=== PATIENT | male | born 1955 | race Caucasian/White ===

== ENCOUNTER 2023-02-07 09:50 | Inpatient (IN) ==
[2023-02-07] MEDS ORDERED: NITROGLYCERIN 2% OINTMENT 30GM TUBE EXT STA (10:20)
[2023-02-07] MEDS: SODIUM CHLORIDE 0.9% 1000ML 1,000 ML IV SCH ×2 (10:46→19:52)
[2023-02-07 10:47] LABS: Basophils # (auto) 0.05 K/uL (0-0.2); Basophils % (auto) 0.7 %; Eosinophils # (auto) 0.25 K/uL (0-0.50); Eosinophils % (auto) 3.6 %; Hematocrit (blood only) 43.8 % (42.0-52.0); Hemoglobin 14.8 g/dl (14.0-18.0); Immature Granulocytes # (auto) 0.03 K/uL (0.01-0.20); Immature Granulocytes % (auto) 0.4 %; Lymphocytes # (auto) 1.64 K/uL (1.2-3.4); Lymphocytes % (auto) 23.4 %; Mean Corpuscular Hemoglobin 29.2 pg (25.0-34.0); Mean Corpuscular Hgb Conc 33.8 g/dL (32.0-36.0); Mean Corpuscular Volume 86.4 fL (80.0-100.0); Mean Platelet Volume 10.6 fL (9.4-12.4); Monocytes # (auto) 0.73 K/uL (0.11-0.59); Monocytes % (auto) 10.4 %; Neutrophils # (auto) 4.31 K/uL (1.40-6.50); Neutrophils % (auto) 61.5 %; Platelet Count 183 K/uL (130-400); RDW Coefficient of Variation 14.1 % (11.5-14.5); RDW Standard Deviation 44.7 fL (36.4-46.3); Red Blood Count 5.07 M/uL (4.70-6.10); White Blood Count 7.01 K/ul (4.8-10.8)
--- NOTE | 2023-02-07 10:52 | XRay Report ---
SINGLE VIEW CHEST CLINICAL HISTORY: Atypical chest pain. FINDINGS: An AP, portable, upright chest radiograph is obtained. No prior studies are available for c omparison at the time of dictation. The examination is degraded by portable technique and apical lord otic positioning. The cardiomediastinal silhouette is top normal for projection. Mild atelectasis is seen at the lung bases. The lungs and pleural spaces are otherwise clear. No pneumothorax is seen. Th e bony thorax is grossly intact. Cholecystectomy clips are noted in the right upper quadrant. IMPRESSION: No active disease in the chest. ACT 112: Negative or not required by law. Electronically signed by: El Rodas M.D. 02/07/2023 10:50 AM
[2023-02-07 11:00] LABS: INR 0.9 (0.9-1.1); Prothrombin Time 10.3 Seconds (9.0-12.0)
[2023-02-07 11:29] LABS: Albumin Level 4.2 gm/dl (3.4-5.0); Bilirubin,Total 0.7 mg/dl (0.2-1.0); Calcium 9.3 mg/dl (8.6-10.3); Potassium 4.3 mmol/L (3.5-5.1); Troponin I High Sensitivity 5.3 pg/ml (0-20)
[2023-02-07 11:35] LABS: Albumin Globulin Ratio 1.7 (0.9-2); BUN Creatinine Ratio 16.5 (10-20); Creatinine Clr Calc Pharmacy 67.2 ml/min; Est GFR (African American) 91.9 ml/min; Est GFR (Non-African American) 79.3 ml/min; Globulin 2.5 gm/dl (2.5-4.0); Total Protein 6.7 gm/dl (6.0-8.3)
--- NOTE | 2023-02-07 12:14 | Emergency Department Note ---
Impression & Plan Chest pain ED Provider Note ED Provider Note NAME: KITTY NAPOLES AGE:67 SEX: Male : 1955 ARRIVES VIA: Private vehicle INFORMANT: Patient ED PROVIDER(s): Dalia Paige DO CHIEF COMPLAINT: Chest pain HPI: This is a 67-year-old male presents Emergency Department with concern for chest pain. Patient states he was working outside in the yard today when he began developing chest pain that radiated into the left upper extremity and into the neck. Patient states he did feel slightly lightheaded, more short of br eath. He denies nausea, vomiting, diaphoresis, or near syncope. No recent change in medications. Patient does follow with cardiology as he does have known coronary artery disease and states he has 4 stents. He states symptoms are similar to his last heart attack in the fall 2021. He denies any recent fevers, chills, or illness. No recent change in medications. No trauma or injury. Patient states when pain began this morning, he did take a total of 3 nitro at home with improvement of his symptoms down to a 2/10 by arrival here. Denies any increased GERD recently. PAST MEDICAL HISTORY:See Below PAST SURGICAL HISTORY:See Below FAMILY HISTORY:See Below SOCIAL HISTORY:See Below HOME MEDICATIONS:See Below ALLERGIES:See Below VITALS:See Below PHYSICAL EXAMINATION: GENERAL: alert, well appearing, well nourished, no distress, non-toxic EYE EXAM: normal conjunctiva, PERRL and EOM's grossly intact OROPHARYNX: no exudate, no erythema, lips, buccal mucosa, and tongue normal and mucous membranes are moist NECK: supple, no nuchal rigidity, no adenopathy, non-tender LUNGS: Clear to auscultation. Normal chest wall mechanics, no w/r/r HEART: no murmurs, S1 normal and S2 normal, no reproducible chest wall tenderness ABDOMEN: abdomen soft, non-tender, normo-active bowel sounds, no masses, no rebound or guarding. BACK: Back is symmetrical on inspection and there is no deformity, no midline tenderness, no CVA tenderness. SKIN: no rashes, petechiae, orbruising UPPER EXTREMITIES: upper extremities are grossly normal. FROM, nml pulses b/l. LOWER EXTREMITIES: No pitting edema. FROM, nml pulses b/l. NEURO EXAM: Normal sensorium, cranial nerves II-XII grossly intact, normal speech, no facial droop,nogross weakness of arms, no gross weakness of legs. Gross sensation intact. No ataxia. Vital Signs: reviewed and remarkable Differential Diagnosis: ACS, PE, pna, dissection, pericarditis/myocarditis, pleural effusion, pericardial effusion, GERD, perforation, GI bleed, as well as others were MEDICAL DECISION MAKING: This is a 67-year-old male presents emergency department due to concern for chest pain which began during exertion this morning. Patient with significant cardiac history and prior PCI. He denies any recent change in reflux symptoms and states he has been compliant with his pantoprazole. Patient was afebrile and vital signs stable, no increased work of breathing or hypoxia noted. Labs drawn and sent, IV established, EKG and chest ray performed at bedside and interpreted by me and patient monitored on telemetry. No acute EKG changes noted and first troponin negative. Given patient did have improvement at home with nitro, nitroglycerin paste was applied with resolution of remaining discomfort. Case discussed with hospitalist for additional evaluation and management given risk factors and known CAD. At this time I do not feel patient required additional CT imaging as I am less suspicious of dissection or worsening thoracic aneurysm. I do not suspect PE. Consultation(s): [] ER Treatment Provided: See below Diagnostics Interpreted By Me: -ECG: Normal sinus at 63, normal axis, normal intervals, inverted T wave in lead III only, no other acute ST/T wave changes -Cardiac Monitoring: An order was placed for continuous cardiac monitoring. The monitor shows a rate of 68 with normal sinus rhythm. -Laboratory studies: As stated above and show below. -Imaging studies: X-ray Chest: A single view study of the chest was reviewed and was negative for cardiomegaly, focal infiltrate, effusion, pulmonary edema, or wide mediastinum. Triage Nursing Note Reviewed Prior/Outside Records Reviewed Past Med/Surg History Surgical History S/P cholecystectomy S/P laparoscopic procedure prostate S/P ureteral stent placement Family History Grandmother (Maternal) Ovarian cancer Brother Colorectal cancer Father Myocardial infarction Stroke Other Hypertension Denies family history of Prostate cancer Breast cancer Social History (Reviewed 02/08/23 @ 11:49 by JOSEPH Page Smoking Status: Never smoker Second Hand Exposure: No; Do You Dip or Chew Tobacco: No; Hx Alcohol Use: Yes Alcohol type: beer and wine Alcohol Intake Frequency: Monthly or Less Hx Substance Use: No Preferred Language: Jordanian Hot Header Operator Required: No Beliefs That Will Affect Care: None marital status: Current Living Situation: Spouse current occupational status: employed Feels Safe at Home: Yes Physical Activity Frequency: Daily Assistive Devices: Denture - Upper, Denture - Lower, Glasses and Walker Allergies Allergies Allergy/AdvReac Type Severity Reaction Status Date / Time No Known Allergies Allergy Verified 01/24/23 14:29 Home Meds Home Medications Medication Instructions Recorded Confirmed aspirin 81 mg tablet,delayed 81 mg PO DAILY 11/24/21 02/07/23 release (Adult Aspirin Regimen) clopidogrel 75 mg tablet (Plavix) 75 mg PO DAILY 11/24/21 02/07/23 ezetimibe 10 mg tablet (Zetia) 10 mg PO DAILY 11/24/21 02/07/23 omega 8-nds-wxx-fish oil 1,000 mg 1 cap PO BID 11/24/21 02/07/23 (120 mg-180 mg) capsule (Fish Oil) ranolazine 500 mg tablet,extended 500 mg PO BID 11/24/21 02/07/23 release,12 hr (Ranexa) pantoprazole 40 mg tablet,delayed 40 mg PO DAILY 01/24/23 02/07/23 release (Protonix) rosuvastatin 40 mg tablet 40 mg PO DAILY 02/07/23 02/07/23 Results & Data (ED) Vital Signs Vital Signs - 24 hr 02/07/23 12:00 02/07/23 12:30 02/07/23 13:15 Pulse Rate 66 62 54 L Pulse Rate from SpO2 Sensor 65 63 Respiratory Rate 21 20 22 Blood Pressure 109/66 123/78 128/75 Blood Pressure Mean 80 93 92 Pulse Oximetry 95 96 96 Oxygen Delivery Method Room Air Room Air Room Air 02/07/23 13:30 Pulse Rate 60 Pulse Rate from SpO2 Sensor 59 L Respiratory Rate 17 Blood Pressure 106/66 Blood Pressure Mean 79 Pulse Oximetry 95 Oxygen Delivery Method Room Air Laboratory Data 02/07/23 10:06 02/07/23 10:06 Lab Results 02/07/23 02/07/23 02/07/23 Range/Units 10:06 10:06 10:06 WBC 7.01 (4.8-10.8) K/ul RBC 5.07 (4.70-6.10) M/uL Hgb 14.8 (14.0-18.0) g/dl Hct 43.8 (42.0-52.0) % MCV 86.4 (80.0-100.0) fL MCH 29.2 (25.0-34.0) pg MCHC 33.8 (32.0-36.0) g/dL RDW Std Deviation 44.7 (36.4-46.3) fL RDW Coeff of Robert 14.1 (11.5-14.5) % Plt Count 183 (130-400) K/uL MPV 10.6 (9.4-12.4) fL Immature Gran % (Auto) 0.4 % Neut % (Auto) 61.5 % Lymph % (Auto) 23.4 % Leon % (Auto) 10.4 % Eos % (Auto) 3.6 % Baso % (Auto) 0.7 % Neut # (Auto) 4.31 (1.40-6.50) K/uL Lymph # (Auto) 1.64 (1.2-3.4) K/uL Leon # (Auto) 0.73 H (0.11-0.59) K/uL Eos # (Auto) 0.25 (0-0.50) K/uL Baso # (Auto) 0.05 (0-0.2) K/uL Immature Gran # (Auto) 0.03 (0.01-0.20) K/uL PT 10.3 (9.0-12.0) Seconds INR 0.9 (0.9-1.1) Sodium 140 (136-145) mmol/L Potassium 4.3 (3.5-5.1) mmol/L Chloride 107 (98-107) mmol/L Carbon Dioxide 27 (21-32) mmol/L Anion Gap 6 (3-11) BUN 16 (6-23) mg/dl Creatinine 0.97 (0.6-1.4) mg/dl Est Cr Clr Drug Dosing 67.2 ml/min Est GFR ( Amer) 91.9 ml/min Est GFR (Non-Af Amer) 79.3 ml/min BUN/Creatinine Ratio 16.5 (10-20) Glucose 113 H (70-99(Fasting)) mg/dl Calcium 9.3 (8.6-10.3) mg/dl Magnesium 2.0 (1.7-2.4) mg/dl Total Bilirubin 0.7 (0.2-1.0) mg/dl AST 21 (13-39) U/L ALT 25 (7-52) U/L Alkaline Phosphatase 55 (34-104) U/L Troponin I High Sens 5.3 (0-20) pg/ml Total Protein 6.7 (6.0-8.3) gm/dl Albumin 4.2 (3.4-5.0) gm/dl Globulin 2.5 (2.5-4.0) gm/dl Albumin/Globulin Ratio 1.7 (0.9-2) Lipase 22 (11-82) U/L Administered Medications Aspirin (Aspirin 81 Mg Ectab) 81 mg PO DAILY DELILAH Stop: 03/10/23 08:59 Last Admin: 02/08/23 07:36 Dose: 81 mg Documented By: AAB Clopidogrel Bisulfate (Clopidogrel Bisulfate 75 Mg Tab) 75 mg PO DAILY DELILAH Stop: 03/10/23 08:59 Last Admin: 02/08/23 07:36 Dose: 75 mg Documented By: AAB Ezetimibe (Ezetimibe 10 Mg Tablet) 10 mg PO DAILY DELILAH Stop: 03/10/23 08:59 Last Admin: 02/08/23 07:36 Dose: 10 mg Documented By: AAB Fish Oil (Merrill-3 (Purified Fish Oil) 1 Gm Cap) 1 gm PO BID DELILAH Stop: 03/09/23 20:59 Last Admin: 02/08/23 07:35 Dose: 1 gm Documented By: Admin: 02/07/23 20:20 Dose: 1 gm Documented By: QG Sodium Chloride (Nss 1000ml) 1,000 mls @ 125 mls/hr IV .Q8H DELILAH Stop: 03/09/23 10:29 Last Admin: 02/08/23 03:51 Dose: 125 mls/hr Documented By: Infusion: 02/08/23 03:51 Dose: 125 mls/hr Documented By: Admin: 02/07/23 19:52 Dose: 125 mls/hr Documented By: Infusion: 02/07/23 18:46 Dose: 125 mls/hr Documented By: Admin: 02/07/23 10:46 Dose: 125 mls/hr Documented By: FABRIZIO Pantoprazole Sodium (Pantoprazole 40 Mg Tab) 40 mg PO DAILY DELILAH Stop: 03/10/23 08:59 Last Admin: 02/08/23 07:36 Dose: 40 mg Documented By: MILKA Ranolazine (Ranolazine 500 Mg Er Tab) 500 mg PO BID DELILAH Stop: 03/09/23 20:59 Last Admin: 02/08/23 07:35 Dose: 500 mg Documented By: Admin: 02/07/23 20:20 Dose: 500 mg Documented By: PadmaG Rosuvastatin Calcium (Rosuvastatin Calcium 20 Mg Tab) 40 mg PO DAILY DELILAH Stop: 03/10/23 08:59 Last Admin: 02/08/23 07:35 Dose: 40 mg Documented By: MILKA Discontinued Medications Al Hydrox/Mg Hydrox/Simethicone (Aluminum/Magnesium/Simeth (Maalox Max) 30 Ml Udc) 30 ml PO ONE ONE Stop: 02/07/23 13:46 Last Admin: 02/07/23 13:48 Dose: 30 ml Documented By: Nitroglycerin (Nitroglycerin 2% Ointment 30gm Tube) 1 inch EXT NOW STA Stop: 02/07/23 10:21 Last Admin: 02/07/23 10:47 Dose: 1 inch Documented By: FABRIZIO Imaging Data Radiologist's Impression: Chest X-Ray 02/07/23 10:20 SINGLE VIEW CHEST CLINICAL HISTORY: Atypical chest pain. FINDINGS: An AP, portable, upright chest radiograph is obtained. No prior studies are available for comparison at the time of dictation. The examination is degraded by portable technique and apical lordotic positioning. The cardiomediastinal silhouette is top normal for projection. Mild atelectasis is seen at the lung bases. The lungs and pleural spaces are otherwise clear. No pneumothorax is seen. The bony thorax is grossly intact. Cholecystectomy clips are noted in the right upper quadrant. IMPRESSION: No active disease in the chest. ACT 112: Negative or not required by law. Electronically signed by: El Rodas M.D. 02/07/2023 10:50 AM Discharge Plan Visit Data Chief Complaint: Chest Pain Stated Complaint: SHARP CHEST PAIN, TINGLING IN L ARM, HEADACHES ED Provider: Dalia Paige Discharge Problem: Chest pain Patient Disposition: Admitted As Inpatient Discharge Instructions Interventions: ED Discharge Assessment Last Done: 02/07/23 14:30
--- NOTE | 2023-02-07 13:05 | History & Physical Report ---
Date of Service February 07, 2023 Assessment & Plan (1) Chest pain: Plan: Chest pain. Hx CAD w/ PCI x2. acute on chronic, unstable, increased risk. Initial troponin negative. 2-hour pending, 6-hour x 3 pending - Echo 2015 EF 55%. Updated echo pending CXR: No acute findings, no fluid overload EKG: Normal sinus rhythm, no territorial ST segment changes/T wave inversions. QTc 411 No leukocytosis, hemoglobin 14.8 Creatinine with normal baseline, admitting creatinine 0.97 Last lipid panel cholesterol 133/LDL 57/HDL/58 Lipase 22 Given strong cardiac history, similarity of symptoms to prior [place] patient is recommended for admission for cardiac eval Aspirin/Plavix DAPT continued Simvastatin/Zetia continued Cardiology consulted. Pt reports he does not wish to have/trust a nuclear stress test as with his past 2x PCI episodes and stents his nuclear stress test was normal prior to cath which did require stents. Records from [facility] pending. Hx Hiatal Hernia, GERD - Pt does not think current sx feels similar to his prior gerd, but note his pain in low chest and bilaterally - No epigastric tenderness - Will trial GI cocktail x1 - Continue PPI THEE - CPAP qHS DVT PPx: Lovenox Diet: HH, NPO 0000 CODE: Full Code Dispo: Med/TEle for CP r/o (2) LVH (left ventricular hypertrophy): (3) Hypercholesterolemia: (4) Hypertension: (5) CAD (coronary artery disease): History of Present Illness Primary Care Provider: Laverne Chirinos is a 67-year-old male with a past medical history of hypertension, CAD with history of RCA stenting , mild LVH, hyperlipidemia who presents with exertional chest pain similar to his prior pain leading to stents. He reports that he was doing yard work and he had sudden onset chest pain with radiation to the left upper extremity and neck with lightheadedness, shortness of breath. He has a history of PCI with 4 prior stents, and his pain this morning felt similar to his last heart attack. He did not have any sweating/diaphoresis with this episode. No syncope. [place] lightheaded, but did not feel like he was going to pass out. Pain took 3 nitro with improvement in pain to 2/10 then 0/10. At time of hospitalist assessment his pain has completely resolved. Reports total his pain only lasted 2-5 minutes. NO chest pain [facility] 2000. Reports he has been chest pain free since his last stent up until today. Takes ranexa BID. Last stent was with Dr. Malone in [place]. Follows with Dr. Arteaga currently. +Nausea without vomiting during episode. Slight headache after episode improved at time of admission. - Pt reports he has had mutiple stress tests previously which have been normal, last was a nuclear stress test. Stress tests were normal even prior to both episodes of stents. He has a history of sleep apnea and acid reflux, generally does not lay flat due to these. Is compliant with CPAP for sleep apnea. No leg swelling/edema. No weight gain No longer on beta jerry. Was previously on metroprolol which was stopped by a physician in [facility], although was unclear why. [facility] was the one who placed first two stents, [place] placed the second two. No chest pain doing extensive yard work yesterday, this morning came on quickly, Medical History: Reviewed Medications: Reviewed Surgical History: Reviewed Family history: Reviewed Allergies: Reviewed Social History: No tobacco, rare glass of wine/beer. No rec drug. Code Status: Full Code Allergies Allergy/AdvReac Type Severity Reaction Status Date / Time No Known Allergies Allergy Verified 01/24/23 14:29 Home Medications Medication Instructions Recorded Confirmed Type aspirin 81 mg tablet,delayed 81 mg PO DAILY 11/24/21 02/07/23 History release (Adult Aspirin Regimen) clopidogrel 75 mg tablet (Plavix) 75 mg PO DAILY 11/24/21 02/07/23 History ezetimibe 10 mg tablet (Zetia) 10 mg PO DAILY 11/24/21 02/07/23 History omega 8-hsp-nur-fish oil 1,000 mg 1 cap PO BID 11/24/21 02/07/23 History (120 mg-180 mg) capsule (Fish Oil) ranolazine 500 mg tablet,extended 500 mg PO BID 11/24/21 02/07/23 History release,12 hr (Ranexa) pantoprazole 40 mg tablet,delayed 40 mg PO DAILY 01/24/23 02/07/23 History release (Protonix) rosuvastatin 40 mg tablet 40 mg PO DAILY 02/07/23 02/07/23 History Past Med/Surg History Surgical History (Updated 11/24/21 @ 14:39 by Raulito Arteaga MD) S/P cholecystectomy S/P laparoscopic procedure prostate S/P ureteral stent placement Family History (Updated 11/24/21 @ 13:50 by JS Bush) Grandmother (Maternal) Ovarian cancer Brother Colorectal cancer Father Myocardial infarction Stroke Other Hypertension Denies family history of Prostate cancer Breast cancer Social History (Updated 11/24/21 @ 13:52 by JS Bush) Smoking Status: Never smoker Second Hand Exposure: No; Do You Dip or Chew Tobacco: No; Hx Alcohol Use: Yes Alcohol Intake Frequency: Monthly or Less Hx Substance Use: No Preferred Language: Sinhala marital status: Current Living Situation: Spouse current occupational status: employed Feels Safe at Home: Yes Physical Activity Frequency: Daily Review of Systems Review of Systems: All systems reviewed & are unremarkable except as noted in HPI & below Physical Exam Physical Exam: General: A&Ox3. NAD. Cooperative. HEENT: Atraumatic, normocephalic. Vision/hearing grossly intact. EoM intact. Pulm: CTAB A&P. -wheezes, -rales, -rhonchi. Symmetrical chest rise. No increased work of breathing. No respiratory distress. Cardiac: RRR, -mrg. Radial pulses intact and symmetrical. Abdominal: Nontender, nondistended, soft. BS present. Ext: warm, dry. No edema. Moving upper and lower extremities equally with intact strength. Sensation to soft touch intact in hands and feet bilaterally. Results & Data Results & Data Vital Signs (Past 12 Hours) Vital Signs Temp Pulse Resp BP Pulse Ox O2 Del Method 02/07/23 12:00 66 21 109/66 95 Room Air 02/07/23 11:30 67 20 114/69 95 Room Air 02/07/23 11:00 62 16 123/71 94 Room Air 02/07/23 10:30 60 13 96 02/07/23 10:30 118/71 02/07/23 10:25 148/89 H 02/07/23 10:25 60 19 95 02/07/23 10:09 98 02/07/23 10:09 147/97 H 02/07/23 10:05 139/74 02/07/23 10:05 59 L 18 97 02/07/23 10:04 61 12 02/07/23 10:06 63 02/07/23 09:52 36.6 C 66 18 166/83 H 98 Room Air PG Care Time/CCT Total # of Minutes Spent Total Time Spent with Patient: Total time spent is greater than 50% in coordination of care (as documented) at patient's floor/unit and/or counseling patient: Coding Level of Care Code 38889 INT INP/OBS CARE 2/55MIN Diagnoses Chest pain R07.9 LVH (left ventricular hypertrophy) I51.7 Hypercholesterolemia E78.00 Hypertension I10 CAD (coronary artery disease) I25.10
[2023-02-07] MEDS ORDERED: ALUMINUM/MAGNESIUM SUSP 18 ML, LIDOCAINE VISCOUS 2% SOLN 6 ML, BARCODE IDENTIFIER 1 EACH PO ONE (13:30)
[2023-02-07] MEDS ORDERED: ALUMINUM/MAGNESIUM/SIMETH (MAALOX MAX) 30 ML UDC PO ONE (13:45)
[2023-02-07] MEDS: RANOLAZINE 500 MG ER TAB PO SCH (20:20)
[2023-02-07] MEDS: OMEGA-3 (PURIFIED FISH OIL) 1 GM CAP PO SCH (20:20)
[2023-02-08] MEDS: SODIUM CHLORIDE 0.9% 1000ML 1,000 ML IV SCH (03:51)
[2023-02-08 04:36] LABS: Basophils # (auto) 0.05 K/uL (0-0.2); Basophils % (auto) 0.4 %; Eosinophils # (auto) 0.23 K/uL (0-0.50); Eosinophils % (auto) 1.9 %; Hematocrit (blood only) 38.1 % (42.0-52.0); Immature Granulocytes # (auto) 0.04 K/uL (0.01-0.20); Immature Granulocytes % (auto) 0.3 %; Lymphocytes # (auto) 1.77 K/uL (1.2-3.4); Lymphocytes % (auto) 14.7 %; Mean Corpuscular Hemoglobin 29.7 pg (25.0-34.0); Mean Corpuscular Hgb Conc 34.1 g/dL (32.0-36.0); Mean Platelet Volume 10.8 fL (9.4-12.4); Monocytes # (auto) 1.24 K/uL (0.11-0.59); Monocytes % (auto) 10.3 %; Neutrophils # (auto) 8.68 K/uL (1.40-6.50); Neutrophils % (auto) 72.4 %; Platelet Count 158 K/uL (130-400); RDW Coefficient of Variation 14.2 % (11.5-14.5); RDW Standard Deviation 45.5 fL (36.4-46.3); Red Blood Count 4.38 M/uL (4.70-6.10); White Blood Count 12.01 K/ul (4.8-10.8)
[2023-02-08 04:49] LABS: BUN Creatinine Ratio 15.9 (10-20); Calcium 8.1 mg/dl (8.6-10.3); Creatinine Clr Calc Pharmacy 57.7 ml/min; Est GFR (African American) 76.4 ml/min; Potassium 4.4 mmol/L (3.5-5.1)
[2023-02-08] MEDS: ROSUVASTATIN CALCIUM 20 MG TAB PO SCH (07:35)
[2023-02-08] MEDS: RANOLAZINE 500 MG ER TAB PO SCH ×2 (07:35→21:46)
[2023-02-08] MEDS: OMEGA-3 (PURIFIED FISH OIL) 1 GM CAP PO SCH ×2 (07:35→21:47)
[2023-02-08] MEDS: EZETIMIBE 10 MG TABLET PO SCH (07:36)
[2023-02-08] MEDS: CLOPIDOGREL BISULFATE 75 MG TAB PO SCH (07:36)
[2023-02-08] MEDS: PANTOprazole 40 MG TAB PO SCH (07:36)
[2023-02-08] MEDS: ASPIRIN 81 MG ECTAB PO SCH (07:36)
--- NOTE | 2023-02-08 11:34 | XCELERA ---
[id number] [id number]
[2023-02-08] MEDS ORDERED: NITROGLYCERIN SL 0.4 MG/TAB TAB ONE (14:24)
[2023-02-08] MEDS ORDERED: LIDOCAINE 1% LOCAL 20 ML VIAL ONE (14:45)
--- NOTE | 2023-02-08 14:45 | Pre Anesthesia Assessment ---
Date of Service February 08, 2023 Pre Sedation Assessment Vital Signs Temp Pulse Pulse Resp BP BP Pulse Ox 02/08/23 14:38 67 16 148/89 H 96 02/08/23 11:46 37.1 C 63 18 138/82 96 02/08/23 08:00 66 02/08/23 08:10 37.1 C 69 18 106/58 L 93 02/08/23 03:37 36.9 C 73 18 112/66 92 02/08/23 00:47 51 L 02/07/23 22:49 36.5 C 55 L 18 110/68 97 02/07/23 19:20 36.4 C L 54 L 18 108/67 96 02/07/23 15:59 53 L 02/07/23 15:04 36.8 C 55 L 18 112/68 98 O2 Del Method 02/08/23 14:38 Room Air 02/08/23 11:46 Room Air 02/08/23 08:00 02/08/23 08:10 Room Air 02/08/23 03:37 Room Air 02/08/23 00:47 02/07/23 22:49 Room Air 02/07/23 19:20 Room Air 02/07/23 15:59 02/07/23 15:04 Room Air Cardiovascular RRR, no murmur, no edema Respiratory normal respiratory effort, lungs clear to auscultation Pre-Sedation Airway Assessment Smoking Status: Never smoker Hx Sleep Apnea: No Short, Thick Neck: No Thyromental Distance: > or= 3.5 Finger Breadths Oral Cavity: + Dentures Mallampati Class: II ASA: ASA3 NPO Status Date of Last Intake of Fluids: 02/08/23 Time of Last Intake of Fluids: 12:00 Date of Last Intake of Solid Food: 02/08/23 Time of Last Intake of Solid Foods: 12:00 Procedure Planning Contraindications for Sedation: none Current Medications Reviewed: Yes Notes The planned sedation has been discussed with the patient. Informed Consent was obtained. I have identified the patient, determined the appropriateness of sedation and have assessed the patient immediately prior to the procedure. All medicine(s) and interventions are by my order.
[2023-02-08] MEDS ORDERED: MIDAZOLAM HCL 1 MG/ML 2ML VIAL ONE (14:46)
[2023-02-08] MEDS ORDERED: niCARdipine HCL INJ 2.5 MG/ML 10 ML AMP ONE (14:46)
[2023-02-08] MEDS ORDERED: HEPARIN (PORCINE) 1000 UNIT/ML 10 ML (CATH LAB USE ONLY) ONE (14:46)
[2023-02-08] MEDS ORDERED: fentaNYL citrate PF 100 MCG/2 ML VIAL ONE (14:47)
[2023-02-08] MEDS ORDERED: NITROGLYCERIN/D5W 100MCG/ML 20ML SYR ONE (14:48)
--- NOTE | 2023-02-08 14:51 | Cardiology Consultation ---
Date of Consultation February 08, 2023 Assessment & Plan (1) Chest pain: (2) CAD (coronary artery disease): (3) Stented coronary artery: (4) Hypertension: (5) Hypercholesterolemia: (6) Exertional angina: Plan ASSESSMENT/PLAN: 1. Chest pain: Possible angina but different than prior NV. Discussed ischemic evaluation options such as invasive versus noninvasive. After discussion, we will proceed with stress echo but if abnormal, would recommend consideration of cardiac catheterization. Objective findings thus far has been unremarkable. 2. CAD s/p RCA PCI x 4: On dual antiplatelet therapy. Continue aspirin 81 mg daily indefinitely. Not on beta-jerry and was bradycardic much of yesterday. Could consider beta-jerry if heart rate tolerates. High intensity statin therapy. He states he is taking simvastatin at home but would recommend high intensity statin therapy in its place. Currently on rosuvastatin while hospitalized. 3. Hypertension: Blood pressure has mostly been normotensive. 4. Dyslipidemia: Most recent LDL was excellent. High intensity statin therapy. With high intensity statin therapy, may be able to discontinue Zetia, which he had been on while taking simvastatin in the past per he and his , in order to achieve better LDL levels. Update: Patient underwent stress test. He developed chest discomfort, more significant than presenting symptom rated as greater than 10 out of 10. ECG was not diagnostic. Concern for hypokinetic inferolateral wall following exercise. Angina resolved with nitroglycerin x1, quickly. Recommended cardiac catheterization. Risk and benefits were discussed with him in detail. He was made aware that CT surgery is not available at this facility. His was brought to the echo/Youth Services Specialist holding area and updated as well. We will proceed with cardiac catheterization. 5. Disposition: We will proceed with cardiac catheterization. Primary hospitalist, Dr. Delgadillo was notified. Highly complex medical issues. Addendum: Cath demonstrated severe RCA CAD and underwent PCI x1. Remain hospitalized o vernight. Anticipate discharge tomorrow. Thank you for allowing me to participate in the care of your patient. Please call for any other questions or concerns. Sincerely, Ash Shirley M.D. History of Present Illness Attending Physician: Kel Delgadillo MD History of Present Illness Mr. Cronin is a pleasant 67-year-old gentleman with a history significant for CAD s/p RCA PCI x 4, hypertension, and dyslipidemia. His primary manager of regulatory affairs is Dr. Arteaga. His last cardiac catheterization was in May 2020 in [place]. He underwent angioplasty and PCI with AICHA. At that time, it was reported that his EF was 45- 50% with proximal LAD 10- 25%, mid circumflex 50%, OM 2 20-30%, and dominant RCA with proximal 40-50% in-stent restenosis and 99% distal thrombotic occlusion. He had been doing well with chronic and stable dyspnea exertion for a few years until yesterday. While shoveling dirt, he had a burning chest discomfort across his chest that radiated into his neck and jaw. There was mild shortness of breath. This occurred at approximately 8:30 AM in the morning. He took nitroglycerin x3 and chest discomfort resolved within 15 minutes. On the car ride here, he had intermittent chest discomfort and then numbness in his left fingertips. He has since been chest pain-free. Symptoms of his myocardial infarction in 2019 were described today as "crucial" heaviness across his chest without radiation but there was also shortness of breath. He believes that the presenting symptoms were somewhat different in nature. He describes himself as very active. He has not been experiencing chest discomfort up until presentation. He denies melena, hematochezia, hematuria, or other bleeding. He denies syncope, near syncope, palpitations, edema, fevers, chills, abdominal pain. His home medication list states that he is taking rosuvastatin. He and his state that he is taking simvastatin. He has with him a list of medications from home stating simvastatin 40 mg daily. Review of systems: As above. Review of systems otherwise negative/unremarkable. Family history: Strong family history of CAD. Social history: He denies smoking or drug abuse. Occasional wine. He lives at home with his . 2 sons. His , Shani, was present at the bedside. Allergies Allergy/AdvReac Type Severity Reaction Status Date / Time No Known Allergies Allergy Verified 01/24/23 14:29 Home Medications Medication Instructions Recorded Confirmed Type aspirin 81 mg tablet,delayed 81 mg PO DAILY 11/24/21 02/07/23 History release (Adult Aspirin Regimen) clopidogrel 75 mg tablet (Plavix) 75 mg PO DAILY 11/24/21 02/07/23 History ezetimibe 10 mg tablet (Zetia) 10 mg PO DAILY 11/24/21 02/07/23 History omega 0-lht-ydh-fish oil 1,000 mg 1 cap PO BID 11/24/21 02/07/23 History (120 mg-180 mg) capsule (Fish Oil) ranolazine 500 mg tablet,extended 500 mg PO BID 11/24/21 02/07/23 History release,12 hr (Ranexa) pantoprazole 40 mg tablet,delayed 40 mg PO DAILY 01/24/23 02/07/23 History release (Protonix) rosuvastatin 40 mg tablet 40 mg PO DAILY 02/07/23 02/07/23 History Patient History Medical History CAD (coronary artery disease) Hypercholesterolemia Hypertension Surgical History (Updated 02/08/23 @ 14:58 by Rj Shirley MD) S/P cholecystectomy S/P laparoscopic procedure prostate S/P ureteral stent placement Stented coronary artery Family History Grandmother (Maternal) Ovarian cancer Brother Colorectal cancer Father Myocardial infarction Stroke Other Hypertension Denies family history of Prostate cancer Breast cancer Social History Smoking Status: Never smoker Second Hand Exposure: No; Do You Dip or Chew Tobacco: No; Hx Alcohol Use: Yes Alcohol type: beer and wine Alcohol Intake Frequency: Monthly or Less Hx Substance Use: No Preferred Language: Citizen Of [place] Communication Ability: Effective 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 Alert and oriented. HEENT: Anicteric sclera. Neck: No JVD. No bruits. Normal carotid upstrokes bilaterally. Cardiac: PMI was nondisplaced. No ventricular heave. Regular. Normal S1-S2. No murmurs, rubs, or gallops. Pulmonary: Clear to auscultation bilaterally without wheezes, rales, or rhonchi. Abdomen: Soft, nontender, nondistended, with normoactive bowel sounds. No bruits noted. Extremities: 2+ radial pulses bilaterally. 2+ posterior tibialis pulses bilaterally. No edema or cyanosis. Psychiatric: Affect appears appropriate. Chest: Nontender to palpation. Results & Data Vital Signs (Past 12 Hours) Vital Signs Temp Pulse Pulse Resp BP BP Pulse Ox 02/08/23 14:38 67 16 148/89 H 96 02/08/23 11:46 37.1 C 63 18 138/82 96 02/08/23 08:00 66 02/08/23 08:10 37.1 C 69 18 106/58 L 93 02/08/23 03:37 36.9 C 73 18 112/66 92 O2 Del Method 02/08/23 14:38 Room Air 02/08/23 11:46 Room Air 02/08/23 08:00 02/08/23 08:10 Room Air 02/08/23 03:37 Room Air Laboratory Results Laboratory Results - last 24 hr 02/07/23 02/07/23 02/08/23 16:03 21:32 04:09 WBC RBC Hgb Hct MCV MCH MCHC RDW Std Deviation RDW Coeff of Robert Plt Count MPV Immature Gran % (Auto) Neut % (Auto) Lymph % (Auto) [place] % (Auto) Eos % (Auto) Baso % (Auto) Neut # (Auto) Lymph # (Auto) [place] # (Auto) Eos # (Auto) Baso # (Auto) Immature Gran # (Auto) Sodium Potassium Chloride Carbon Dioxide Anion Gap BUN Creatinine Est Cr Clr Drug Dosing Est GFR ( Amer) Est GFR (Non-Af Amer) BUN/Creatinine Ratio Glucose Calcium Troponin I High Sens 6.7 6.0 6.5 02/08/23 02/08/23 04:09 04:09 WBC 12.01 H RBC 4.38 L Hgb 13.0 L Hct 38.1 L MCV 87.0 MCH 29.7 MCHC 34.1 RDW Std Deviation 45.5 RDW Coeff of Robert 14.2 Plt Count 158 MPV 10.8 Immature Gran % (Auto) 0.3 Neut % (Auto) 72.4 Lymph % (Auto) 14.7 [place] % (Auto) 10.3 Eos % (Auto) 1.9 Baso % (Auto) 0.4 Neut # (Auto) 8.68 H Lymph # (Auto) 1.77 [place] # (Auto) 1.24 H Eos # (Auto) 0.23 Baso # (Auto) 0.05 Immature Gran # (Auto) 0.04 Sodium 137 Potassium 4.4 Chloride 108 H Carbon Dioxide 25 Anion Gap 4 BUN 18 Creatinine 1.13 Est Cr Clr Drug Dosing 57.7 Est GFR ( Amer) 76.4 Est GFR (Non-Af Amer) 66.0 BUN/Creatinine Ratio 15.9 Glucose 98 Calcium 8.1 L Troponin I High Sens Diagnostic Findings Telemetry personally reviewed: Sinus rhythm. History and physical report reviewed. Echo 02/08/2023: Normal LV size, wall motion, systolic function. EF 55 to 60%. No significant valvular abnormalities. ECGs personally reviewed. ECG 02/07/2023 at 9:58 AM: Sinus rhythm 63 bpm. Normal ECG. Labs reviewed and notable for normal high-sensitivity troponin x4, normal renal function, normal potassium, mild leukocytosis. Chest x-ray image personally reviewed from 02/07/2023: No infiltrate. No pleural effusion. Per radiology, no active disease in the chest. Medications Administered Current Inpatient Medications Aspirin (Aspirin 81 Mg Ectab) 81 mg PO DAILY [facility] Stop: 03/10/23 08:59 Last Admin: 02/08/23 07:36 Dose: 81 mg Clopidogrel Bisulfate (Clopidogrel Bisulfate 75 Mg Tab) 75 mg PO DAILY [facility] Stop: 03/10/23 08:59 Last Admin: 02/08/23 07:36 Dose: 75 mg Ezetimibe (Ezetimibe 10 Mg Tablet) 10 mg PO DAILY [facility] Stop: 03/10/23 08:59 Last Admin: 02/08/23 07:36 Dose: 10 mg Fish Oil ([place]-3 (Purified Fish Oil) 1 Gm Cap) 1 gm PO BID [facility] Stop: 03/09/23 20:59 Last Admin: 02/08/23 07:35 Dose: 1 gm Sodium Chloride (Nss 1000ml) 1,000 mls @ 125 mls/hr IV .Q8H [facility] Stop: 03/09/23 10:29 Last Infusion: 02/08/23 11:57 Dose: Infused Pantoprazole Sodium (Pantoprazole 40 Mg Tab) 40 mg PO DAILY [facility] Stop: 03/10/23 08:59 Last Admin: 02/08/23 07:36 Dose: 40 mg Ranolazine (Ranolazine 500 Mg Er Tab) 500 mg PO BID [facility] Stop: 03/09/23 20:59 Last Admin: 02/08/23 07:35 Dose: 500 mg Rosuvastatin Calcium (Rosuvastatin Calcium 20 Mg Tab) 40 mg PO DAILY [facility] Stop: 03/10/23 08:59 Last Admin: 02/08/23 07:35 Dose: 40 mg PG Care Time/CCT Total # of Minutes Spent Total Time Spent with Patient: Total time spent is greater than 50% in coordination of care (as documented) at patient's floor/unit and/or counseling patient: Coding Level of Care Code 95204 INT INP/OBS CARE 3/75MIN Diagnoses Chest pain R07.9 CAD (coronary artery disease) I25.10 Stented coronary artery Z95.5 Hypertension I10 Hypercholesterolemia E78.00 Exertional angina I20.8
--- NOTE | 2023-02-08 16:14 | Cardiac Catheterization ---
[facility] Data: Siebel Solution Architect Cardiac Status Clinical evaluation leading to the procedure CAD Presenation: Unstable angina Anginal Classification: CCS III Heart Failure: No Cardiogenic Shock within 24 Hours: No Cardiac Arrest within 24 Hours: No Imaging Studies Past 6 Months: No Stress Studies Past 6 Months: Yes Standard Exercise Test: Yes - Indeterminant Stress Echocardiogram: Yes - Positive and Risk/Extent of Ischemia (Intermediate) Stress Testing w/SPECT MPI: No Cardiac CTA: No Coronary Anatomy Dominant: Right Diagnostic Physicians Name: Rj Shirley MD Status: Elective Closure Device Percutaneous Entry Location: Radial Closure Device: Radial Band Recommendations: PCI without planned CABG Cardiac Cath Procedure Full Procedure Date February 08, 2023 Pre-Procedure Diagnosis Pre-Procedure Diagnosis: Angina and Positive Stress Test AUC Score AUC Score: 8 Post-Procedure Diagnosis Post-Procedure Diagnosis: Severe CAD and Elevated Intracardiac Pressures Procedure(s) Performed Procedure(s) Performed: Coronary Angiography and Left Heart Cath Audiovisual Tech Rj Shirley MD Associate Trainer(s) Careers Counsellor Estimated Blood Loss Estimated Blood Loss: < 20 ml Medication(s) Medication(s): Fentanyl, Heparin, Lidocaine 1%, Nicardipine and Versed Summary of Findings Procedures: 1. Coronary angiography 2. Left heart catheterization 3. Moderate sedation Indication: 67-year-old gentleman with known CAD and prior RCA PCI x4, hypertension, and dyslipidemia who presented with chest pain. High-sensitivity troponin and ECG were unremarkable. Developed angina during stage I of Alfred[place] protocol on stress testing. Cardiac catheterization recommended. Coronary angiography: 1. No left main. Separate ostium for LAD and circumflex. 2. Left anterior descending: Large caliber vessel that extends to the apex. Ostial LAD 50 to 70%. There was ventricularization of the arterial waveform while engaged with a 6 Tajik diagnostic catheter. Mild chest discomfort described by patient. Small D1. Small to medium caliber D2 with mild CAD. BRIDGER III flow throughout. 3. Circumflex: Mid circumflex 30 to 40%. Large OM 1. Small OM 2. 4. Right coronary artery: RCA is large and dominant. Mid to distal RCA stent patent with mild luminal irregularities distally within the stents. Early mid RCA 50 to 60%. Distal RCA (beyond distal stent margin) hazy 95% stenosis. BRIDGER-[address] flow beyond. PDA and PL without significant CAD. PL stent is patent. Left heart catheterization: 1. Left ventriculography was not performed. 2. LVEDP mildly elevated; 18 mmHg. 3. No aortic stenosis. Peak to peak gradient across aortic valve 0. Moderate sedation: 1. Sedation start time: 3:16 PM 2. Sedation end time: 3:32 PM Impression: 1. Severe distal RCA CAD, likely ruptured plaque/thrombus. 2. Moderate to severe ostial LAD stenosis. 3. Otherwise nonobstructive CAD. 4. Patent RCA stents. 5. Separate ostium of LAD and circumflex. 6. Mildly elevated LVEDP. 7. No aortic stenosis. Plan: 1. Images reviewed with Dr. uCnningham of interventional cardiology who plans to attempt PCI of distal RCA. Hemodynamics Rest Ao:: 132/59 Final Ao: 149/68 LV: 147/5/18 Recommendations Recommendations: PCI without planned CABG Specimens Specimens: None Radiation Exposure (mGy) 719 mGy. 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 Any exceptions are noted below. [facility] Card Cath Procedure Codes Cardiac Catheterization Procedure 1: Cardiovascular Cath Procedures: 06446 Coronaries and LHC (+/-LV) Moderate Sedation Procedure 1: Sedation/Anesthesia: 72259 Mod Sedation by the same physician;Init15 Min Child Age 5 & Up Procedure 2: Sedation/Anesthesia: 96584 Mod Sedation by the same physician; Ea [id number] Minutes PG Care Time/CCT Total # of Minutes Spent Total Time Spent with Patient: Total time spent is greater than 50% in coordination of care (as documented) at patient's floor/unit and/or counseling patient:
[2023-02-08] MEDS ORDERED: CLOPIDOGREL BISULFATE 300 MG TAB ONE (16:37)
--- NOTE | 2023-02-08 16:50 | Post Anesthesia Assessment ---
Date of Service February 08, 2023 Post Sedation Assessment Vital Signs Temp Pulse Pulse Resp BP BP Pulse Ox 02/08/23 16:35 72 16 161/84 H 96 02/08/23 14:38 67 16 148/89 H 96 02/08/23 11:46 98.8 F 63 18 138/82 96 02/08/23 08:00 66 02/08/23 08:10 98.8 F 69 18 106/58 L 93 02/08/23 03:37 98.4 F 73 18 112/66 92 02/08/23 00:47 51 L 02/07/23 22:49 97.7 F 55 L 18 110/68 97 02/07/23 19:20 97.5 F L 54 L 18 108/67 96 O2 Del Method 02/08/23 16:35 Room Air 02/08/23 14:38 Room Air 02/08/23 11:46 Room Air 02/08/23 08:00 02/08/23 08:10 Room Air 02/08/23 03:37 Room Air 02/08/23 00:47 02/07/23 22:49 Room Air 02/07/23 19:20 Room Air Recovery Score Activity: Moves 4 extremities Respiration: Deep Breath/Cough Circulation: +/-20% PreAnes Value Consciousness: Fully Awake Oxygen Saturation: > 92% On Room Air Post Anesthesia Score: 10 Discharge Sedation Level of Care: Fast Track Phase II Post Sedation Plan On clinical assessment, the patient appears to have tolerated the sedation without complications. Patient is recovering as anticipated. Patient will continue to be monitored by nursing and may be discharged when sedation discharge criteria are met per below protocol. Upon Completions of procedure up to 15 minutes continue every 5 minute vital signs and the P.A.R. score; then discharge to a Phase I or Fast Track to Phase II per the following guidelines: * Discharge Patient to appropriate Phase II area if PAR is 8 or greater or return to pre- procedure baseline. The post - procedure orders will be as directed. * If PAR score is less than 8 or not return to pre-procedure baseline then patient will follow Phase I monitoring till PAR is reached for Phase II. The Phase I may be done in procedure room or may call to secure a Phase I area. * If naloxone or flumazenil are used for reversal, hold in Phase I for continued monitoring from when last reversal dose was given for a minimum of 60 minutes or longer pending the nurse and/or physician discretion of patient condition before discharge to Phase II. Please call the Sedation Physician to re-evaluate and complete post-note for discharge to Phase II area. Do NOT discharge from procedure sedation or Phase 1 until post- sedation evaluation note is complete by procedure /sedation MD Sedation Discharge Instructions to be given to the patient at discharge to home.
--- NOTE | 2023-02-08 16:52 | XCELERA ---
[id number]
--- NOTE | 2023-02-08 16:59 | Cardiac Catheterization ---
[facility] Data: Art Class Model Cardiac Status Clinical evaluation leading to the procedure CAD Presenation: Positive Stress Test and Unstable angina Anginal Classification: CCS III Diagnostic Physicians Name: Lefty Cunningham MD Closure Device Recommendations: PCI without planned CABG Cardiac Cath Procedure Full Procedure Date February 08, 2023 Pre-Procedure Diagnosis Pre-Procedure Diagnosis: Angina and Positive Stress Test AUC Score AUC Score: 8 Post-Procedure Diagnosis Post-Procedure Diagnosis: Severe CAD and Successful PCI Procedure(s) Performed Procedure(s) Performed: Coronary Angiography and Drug Eluting Stent 911 Emergency Dispatcher Lefty Cunningham MD Apprentice Cosmetologist(s) Residential Carpenter Estimated Blood Loss Estimated Blood Loss: < 20 ml Medication(s) Medication(s): Clopidogrel, Fentanyl, Heparin, Lidocaine 1%, Nicardipine, Nitroglycerin and Versed Summary of Findings Indication: Unstable angina, abnormal stress test. History of CAD post multiple prior PCI Access: 6 Fr right radial artery Catheters: AR-1 guide Findings: For full details of patient's coronary angiography please see cath report dictated by Dr. Shirley. Briefly, patient found to have an acute appearing 95% distal RCA stenosis just prior to bifurcation with PDA/large PAV. Decision to proceed with PCI. -- PCI -- Antithrombotic therapy: Heparin, clopidogrel Procedure: RCA cannulated with AR-1 guide Pre-procedure flow BRIDGER 3 Customer Order Clerk 50 wire passed across lesion into distal PDA Distal RCA lesion predilated with 2.5 compliant balloon Dilated lesion stented with 2.5 x 18 mm Xience drug-eluting stent. Overlapped distal end of prior stent and extended just to bifurcation. Stent post-dilated with 2.75 noncompliant balloon IC vasodilators administered for spasm Post procedure BRIDGER 3 flow, stent well expanded with minimal residual stenosis and no apparent cardiac complications. Arterial Closure: TR band Summary: 1. Successful PCI of distal RCA with single AICHA overlapping distal aspect of prior stent (2.5 x 18 mm Xience; postdilated with 2.75 NC). Recommendations: To PCU for continued monitoring Reloaded with clopidogrel 300 mg in Art Class Model Continue dual-antiplatelet therapy for at least 1 year, likely extended in the setting of complex disease Continue statin, and ASCVD risk factor modification Consult cardiac Rehab Hemodynamics Rest Ao:: 132/46/100 Final Ao: 154/76/108 LV: 156/18 Recommendations Recommendations: PCI without planned CABG Specimens Specimens: None Radiation Exposure (mGy) 2349 Contrast (mls) 75 Anesthesia Moderate 3334-6013 Procedural Complication(s) None Disposition PCU I attest to the content of the Intraoperative Record and any orders documented therein. Any exceptions are noted below. [facility] Card Cath Procedure Codes Moderate Sedation Procedure 1: Sedation/Anesthesia: 89275 Mod Sedation by the same physician; Ea [id number] Minutes Stenting Procedure 1: Cardiovascular Stent Procedures: 01076 Perc transcatheter placement of intracoronary stent(s), with ang PG Care Time/CCT Total # of Minutes Spent Total Time Spent with Patient: Total time spent is greater than 50% in coordination of care (as documented) at patient's floor/unit and/or counseling patient:
--- NOTE | 2023-02-08 20:54 | Hospitalist Progress Note ---
Date of Service February 08, 2023 Assessment & Plan (1) Unstable angina: Plan: Troponins negative at presentation. However, following his + stress test he underwent L heart cath by Dr Ahs Shirley showing a distal 95% RCA lesion. This lesion was felt to be an acute occlusion. Dr Lefty Cunningham subsequently placed a stent across this lesion. 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 Continue - * asa 81mg daily * plavix 75mg daily * zetia 10mg daily * ranexa 500mg BID * crestor 40mg daily I am assuming he is not on beta jerry due to low-normal HRs (60s). (2) CAD (coronary artery disease): Plan: previous RCA stents - some done in [place], some done in [place]. diagnostic cath findings today - Coronary angiography: 1. No left main. Separate ostium for LAD and circumflex. 2. Left anterior descending: Large caliber vessel that extends to the apex. Ostial LAD 50 to 70%. There was ventricularization of the arterial waveform while engaged with a 6 [place] diagnostic catheter. Mild chest discomfort described by patient. Small D1. Small to medium caliber D2 with mild CAD. BRIDGER III flow throughout. 3. Circumflex: Mid circumflex 30 to 40%. Large OM 1. Small OM 2. 4. Right coronary artery: RCA is large and dominant. Mid to distal RCA stent patent with mild luminal irregularities distally within the stents. Early mid RCA 50 to 60%. Distal RCA (beyond distal stent margin) hazy 95% stenosis. BRIDGER-3 flow beyond. PDA and PL without significant CAD. PL stent is patent. (3) Hypertension: Plan: pre-cath BPs were high post-cath -- BPs still high trend if persistently high -- low-dose amlodipine or could re-trial low-dose BB (4) Hypercholesterolemia: Plan: LDL was 57 a few weeks ago cont crestor cont zetia Plan watch overnight possible d/c home tomorrow change observation status to full admission status Admission and Anticipated Discharge Date Admission Date: February 07, 2023 Subjective saw patient on the tele unit post-cath he was resting comfortably watching TV no chest pain, dyspnea, palpitations, or N/V since the cath he feels good telemetry - wnl Review of Systems Review of Systems: cv - no orthopnea, no PND pulm - no dyspnea GI - no abd pain Physical Exam Physical Exam: gen - NAD, appears well neck - no JVD mouth - MMM heart - RRR, s1 s2, no murmur lungs - CTA b/l abd - soft NT ND BS+ ext - no edema, pulses 2+ b/l vascular - right radial artery - no hematoma; band in place; no bleeding Results & Data Results & Data Vital Signs (Past 12 Hours) Vital Signs Temp Pulse Pulse Resp BP BP Pulse Ox 02/08/23 20:29 64 18 158/84 H 158/84 H 96 02/08/23 19:44 36.8 C 67 19 149/81 H 94 02/08/23 18:14 36.3 C L 59 L 18 158/80 H 95 02/08/23 18:09 65 02/08/23 17:44 36.5 C 61 18 154/82 H 95 02/08/23 17:29 36.5 C 62 18 149/82 H 96 02/08/23 17:14 36.5 C 66 18 156/84 H 96 02/08/23 16:59 36.6 C 69 18 160/79 H 95 02/08/23 16:35 72 16 161/84 H 96 02/08/23 14:38 67 16 148/89 H 96 02/08/23 11:46 37.1 C 63 18 138/82 96 O2 Del Method 02/08/23 20:29 Room Air 02/08/23 19:44 Room Air 02/08/23 18:14 Room Air 02/08/23 18:09 02/08/23 17:44 Room Air 02/08/23 17:29 Room Air 02/08/23 17:14 Room Air 02/08/23 16:59 Room Air 02/08/23 16:35 Room Air 02/08/23 14:38 Room Air 02/08/23 11:46 Room Air Laboratory Results Laboratory Results - last 48 hr 02/07/23 02/07/23 02/07/23 10:06 10:06 10:06 WBC 7.01 RBC 5.07 Hgb 14.8 Hct 43.8 MCV 86.4 MCH 29.2 MCHC 33.8 RDW Std Deviation 44.7 RDW Coeff of Robert 14.1 Plt Count 183 MPV 10.6 Immature Gran % (Auto) 0.4 Neut % (Auto) 61.5 Lymph % (Auto) 23.4 [place] % (Auto) 10.4 Eos % (Auto) 3.6 Baso % (Auto) 0.7 Neut # (Auto) 4.31 Lymph # (Auto) 1.64 [place] # (Auto) 0.73 H Eos # (Auto) 0.25 Baso # (Auto) 0.05 Immature Gran # (Auto) 0.03 PT 10.3 INR 0.9 Activ Coag Time Kaolin Sodium 140 Potassium 4.3 Chloride 107 Carbon Dioxide 27 Anion Gap 6 BUN 16 Creatinine 0.97 Est Cr Clr Drug Dosing 67.2 Est GFR ( Amer) 91.9 Est GFR (Non-Af Amer) 79.3 BUN/Creatinine Ratio 16.5 Glucose 113 H Calcium 9.3 Magnesium 2.0 Total Bilirubin 0.7 AST 21 ALT 25 Alkaline Phosphatase 55 Troponin I High Sens 5.3 Total Protein 6.7 Albumin 4.2 Globulin 2.5 Albumin/Globulin Ratio 1.7 Lipase 22 SARS-CoV-2, RNA, NAAT 02/07/23 02/07/23 02/07/23 16:03 21:32 Unknown WBC RBC Hgb Hct MCV MCH MCHC RDW Std Deviation RDW Coeff of Robert Plt Count MPV Immature Gran % (Auto) Neut % (Auto) Lymph % (Auto) [place] % (Auto) Eos % (Auto) Baso % (Auto) Neut # (Auto) Lymph # (Auto) [place] # (Auto) Eos # (Auto) Baso # (Auto) Immature Gran # (Auto) PT INR Activ Coag Time Kaolin Sodium Potassium Chloride Carbon Dioxide Anion Gap BUN Creatinine Est Cr Clr Drug Dosing Est GFR ( Amer) Est GFR (Non-Af Amer) BUN/Creatinine Ratio Glucose Calcium Magnesium Total Bilirubin AST ALT Alkaline Phosphatase Troponin I High Sens 6.7 6.0 Total Protein Albumin Globulin Albumin/Globulin Ratio Lipase SARS-CoV-2, RNA, NAAT NEGATIVE 02/08/23 02/08/23 02/08/23 04:09 04:09 04:09 WBC 12.01 H RBC 4.38 L Hgb 13.0 L Hct 38.1 L MCV 87.0 MCH 29.7 MCHC 34.1 RDW Std Deviation 45.5 RDW Coeff of Robert 14.2 Plt Count 158 MPV 10.8 Immature Gran % (Auto) 0.3 Neut % (Auto) 72.4 Lymph % (Auto) 14.7 [place] % (Auto) 10.3 Eos % (Auto) 1.9 Baso % (Auto) 0.4 Neut # (Auto) 8.68 H Lymph # (Auto) 1.77 [place] # (Auto) 1.24 H Eos # (Auto) 0.23 Baso # (Auto) 0.05 Immature Gran # (Auto) 0.04 PT INR Activ Coag Time Kaolin Sodium 137 Potassium 4.4 Chloride 108 H Carbon Dioxide 25 Anion Gap 4 BUN 18 Creatinine 1.13 Est Cr Clr Drug Dosing 57.7 Est GFR ( Amer) 76.4 Est GFR (Non-Af Amer) 66.0 BUN/Creatinine Ratio 15.9 Glucose 98 Calcium 8.1 L Magnesium Total Bilirubin AST ALT Alkaline Phosphatase Troponin I High Sens 6.5 Total Protein Albumin Globulin Albumin/Globulin Ratio Lipase SARS-CoV-2, RNA, NAAT PG Care Time/CCT Total # of Minutes Spent Total Time Spent with Patient: Total time spent is greater than 50% in coordination of care (as documented) at patient's floor/unit and/or counseling patient: Coding Level of Care Code 24836 SUB INP/OBS CARE 235MIN Diagnoses Unstable angina I20.0 CAD (coronary artery disease) I25.10 Hypertension I10 Hypercholesterolemia E78.00
[2023-02-09 06:14] LABS: Basophils # (auto) 0.06 K/uL (0-0.2); Basophils % (auto) 0.6 %; Eosinophils # (auto) 0.33 K/uL (0-0.50); Eosinophils % (auto) 3.3 %; Hemoglobin 13.7 g/dl (14.0-18.0); Immature Granulocytes # (auto) 0.04 K/uL (0.01-0.20); Immature Granulocytes % (auto) 0.4 %; Lymphocytes # (auto) 2.09 K/uL (1.2-3.4); Lymphocytes % (auto) 20.7 %; Mean Corpuscular Hemoglobin 29.5 pg (25.0-34.0); Mean Corpuscular Hgb Conc 34.3 g/dL (32.0-36.0); Mean Platelet Volume 10.7 fL (9.4-12.4); Monocytes # (auto) 1.26 K/uL (0.11-0.59); Monocytes % (auto) 12.5 %; Neutrophils # (auto) 6.33 K/uL (1.40-6.50); Neutrophils % (auto) 62.5 %; Platelet Count 168 K/uL (130-400); RDW Coefficient of Variation 14.5 % (11.5-14.5); RDW Standard Deviation 45.3 fL (36.4-46.3); Red Blood Count 4.65 M/uL (4.70-6.10); White Blood Count 10.11 K/ul (4.8-10.8)
[2023-02-09 06:30] LABS: BUN Creatinine Ratio 15.9 (10-20); Calcium 8.6 mg/dl (8.6-10.3); Creatinine Clr Calc Pharmacy 60.9 ml/min; Est GFR (African American) 81.7 ml/min; Est GFR (Non-African American) 70.5 ml/min; Potassium 4.2 mmol/L (3.5-5.1)
[2023-02-09] MEDS: PANTOprazole 40 MG TAB PO SCH (06:51)
[2023-02-09] MEDS: RANOLAZINE 500 MG ER TAB PO SCH (08:41)
[2023-02-09] MEDS: EZETIMIBE 10 MG TABLET PO SCH (08:41)
[2023-02-09] MEDS: ROSUVASTATIN CALCIUM 20 MG TAB PO SCH (08:41)
[2023-02-09] MEDS: OMEGA-3 (PURIFIED FISH OIL) 1 GM CAP PO SCH (08:41)
[2023-02-09] MEDS: ASPIRIN 81 MG ECTAB PO SCH (08:42)
[2023-02-09] MEDS: CLOPIDOGREL BISULFATE 75 MG TAB PO SCH (08:42)
--- NOTE | 2023-02-09 09:54 | Cardiology Progress Note ---
Date of Service February 09, 2023 Assessment & Plan (1) CAD (coronary artery disease): (2) Stented coronary artery: (3) Hypertension: (4) Hypercholesterolemia: (5) Exertional angina: Plan ASSESSMENT/PLAN: 1. CAD s/p RCA PCI x 5: Received another PCI to distal RCA on 02/08/2023. No further angina. Continue aspirin 81 mg daily indefinitely. Continue Plavix 75 mg daily for at least 1 year but likely extended due to complex disease with multiple PCI. Start metoprolol succinate 25 mg once daily as heart rate is acceptable, for residual CAD. High intensity statin therapy. 2. Hypertension: Blood pressure normotensive today but has been intermittently hypertensive. Beta-jerry as above. 3. Dyslipidemia: Most recent LDL was excellent. High intensity statin therapy. With high intensity statin therapy, may be able to discontinue Zetia, which he had been on while taking simvastatin in the past per he and his , in order to achieve better LDL levels. 4. Disposition: Recommend ambulation in the hallway. If okay, can be discharged from a cardiac standpoint. Follow-up with Dr. Arteaga in 1 to 2 weeks. Patient care communicated with Dr. Delgadillo of the primary hospitalist service. Admission and Anticipated Discharge Date Admission Date: February 08, 2023 Subjective Patient seen this morning. He feels much better. No chest pain, shortness of breath, syncope, near syncope, palpitations, or edema. He had not yet ambulated in the hallway. No complaints from right radial cath site. He was alone in his hospital room. Physical Exam Physical Exam: Gen.: No acute distress. Alert and oriented. HEENT: Anicteric sclera. Neck: No JVD. Cardiac: No ventricular heave. Regular. Normal S1-S2. No murmurs, rubs, or gallops. Pulmonary: Clear to auscultation bilaterally without wheezes, rales, or rhonchi. Abdomen: Soft, nontender, nondistended, with normoactive bowel sounds. No bruits noted. Extremities: 2+ radial pulses bilaterally. Right radial cath site is clean, dry, and intact without erythema or discharge. 2+ posterior tibialis pulses bilaterally. No edema or cyanosis. Psychiatric: Affect appears appropriate. Results & Data Vital Signs (Past 12 Hours) Vital Signs Temp Pulse Pulse Resp BP BP Pulse Ox 02/09/23 07:21 36.8 C 64 18 128/78 96 02/09/23 03:27 36.6 C 68 18 136/77 94 02/08/23 23:40 68 02/08/23 23:24 36.7 C 70 17 146/81 H 96 02/08/23 21:56 63 18 165/83 H 95 O2 Del Method 02/09/23 07:21 Room Air 02/09/23 03:27 Room Air 02/08/23 23:40 02/08/23 23:24 Room Air 02/08/23 21:56 Room Air Intake & Output 02/07/23 02/08/23 02/09/23 02/10/23 06:59 06:59 06:59 06:59 Intake Total 2422.917 / 2422.917 1490 / 1490 Output Total 1750 / 1750 500 / 500 Balance 2422.917 / 2422.917 -260 / -260 -500 / -500 Weight 167 lb 8.821 oz 165 lb 12.602 oz Laboratory Results Laboratory Results - last 24 hr 02/08/23 02/08/23 02/09/23 15:46 16:16 05:53 WBC 10.11 RBC 4.65 L Hgb 13.7 L Hct 40.0 L MCV 86.0 MCH 29.5 MCHC 34.3 RDW Std Deviation 45.3 RDW Coeff of Robert 14.5 Plt Count 168 MPV 10.7 Immature Gran % (Auto) 0.4 Neut % (Auto) 62.5 Lymph % (Auto) 20.7 [place] % (Auto) 12.5 Eos % (Auto) 3.3 Baso % (Auto) 0.6 Neut # (Auto) 6.33 Lymph # (Auto) 2.09 [place] # (Auto) 1.26 H Eos # (Auto) 0.33 Baso # (Auto) 0.06 Immature Gran # (Auto) 0.04 Activ Coag Time Kaolin 215 H 257 H Sodium Potassium Chloride Carbon Dioxide Anion Gap BUN Creatinine Est Cr Clr Drug Dosing Est GFR ( Amer) Est GFR (Non-Af Amer) BUN/Creatinine Ratio Glucose Calcium 02/09/23 05:53 WBC RBC Hgb Hct MCV MCH MCHC RDW Std Deviation RDW Coeff of Robert Plt Count MPV Immature Gran % (Auto) Neut % (Auto) Lymph % (Auto) [place] % (Auto) Eos % (Auto) Baso % (Auto) Neut # (Auto) Lymph # (Auto) [place] # (Auto) Eos # (Auto) Baso # (Auto) Immature Gran # (Auto) Activ Coag Time Kaolin Sodium 138 Potassium 4.2 Chloride 107 Carbon Dioxide 25 Anion Gap 6 BUN 17 Creatinine 1.07 Est Cr Clr Drug Dosing 60.9 Est GFR ( Amer) 81.7 Est GFR (Non-Af Amer) 70.5 BUN/Creatinine Ratio 15.9 Glucose 96 Calcium 8.6 Diagnostic Findings Telemetry personally reviewed: Sinus rhythm. Cardiac cath 02/08/2023: Coronary angiography: 1. No left main. Separate ostium for LAD and circumflex. 2. Left anterior descending: Large caliber vessel that extends to the apex. Ostial LAD 50 to 70%. There was ventricularization of the arterial waveform while engaged with a 6 [place] diagnostic catheter. Mild chest discomfort described by patient. Small D1. Small to medium caliber D2 with mild CAD. BRIDGER III flow throughout. 3. Circumflex: Mid circumflex 30 to 40%. Large OM 1. Small OM 2. 4. Right coronary artery: RCA is large and dominant. Mid to distal RCA stent patent with mild luminal irregularities distally within the stents. Early mid RCA 50 to 60%. Distal RCA (beyond distal stent margin) hazy 95% stenosis. BRIDGER-3 flow beyond. PDA and PL without significant CAD. PL stent is patent. Left heart catheterization: 1. Left ventriculography was not performed. 2. LVEDP mildly elevated; 18 mmHg. 3. No aortic stenosis. Peak to peak gradient across aortic valve 0. PCI Summary: 1. Successful PCI of distal RCA with single AICHA overlapping distal aspect of prior stent (2.5 x 18 mm Xience; postdilated with 2.75 NC). Labs from 02/09/2023 demonstrated stable blood counts, stable renal function. Medications Administered Current Inpatient Medications Aspirin (Aspirin 81 Mg Ectab) 81 mg PO DAILY [facility] Stop: 03/10/23 08:59 Last Admin: 02/09/23 08:42 Dose: 81 mg Clopidogrel Bisulfate (Clopidogrel Bisulfate 75 Mg Tab) 75 mg PO DAILY [facility] Stop: 03/10/23 08:59 Last Admin: 02/09/23 08:42 Dose: 75 mg Ezetimibe (Ezetimibe 10 Mg Tablet) 10 mg PO DAILY [facility] Stop: 03/10/23 08:59 Last Admin: 02/09/23 08:41 Dose: 10 mg Fish Oil ([place]-3 (Purified Fish Oil) 1 Gm Cap) 1 gm PO BID [facility]IL[facility] Stop: 03/09/23 20:59 Last Admin: 02/09/23 08:41 Dose: 1 gm Pantoprazole Sodium (Pantoprazole 40 Mg Tab) 40 mg PO DAILY [facility] Stop: 03/10/23 08:59 Last Admin: 02/09/23 06:51 Dose: 40 mg Ranolazine (Ranolazine 500 Mg Er Tab) 500 mg PO BID [facility]ILAH Stop: 03/09/23 20:59 Last Admin: 02/09/23 08:41 Dose: 500 mg Rosuvastatin Calcium (Rosuvastatin Calcium 20 Mg Tab) 40 mg PO DAILY [facility] Stop: 03/10/23 08:59 Last Admin: 02/09/23 08:41 Dose: 40 mg PG Care Time/CCT Total # of Minutes Spent Total Time Spent with Patient: Total time spent is greater than 50% in coordination of care (as documented) at patient's floor/unit and/or counseling patient: Coding Level of Care Code 60019 SUB INP/OBS CARE 2/35MIN Diagnoses CAD (coronary artery disease) I25.10 Stented coronary artery Z95.5 Hypertension I10 Hypercholesterolemia E78.00 Exertional angina I20.8
[2023-02-09] MEDS ORDERED: METOPROLOL SUCC 25MG EXT REL TAB PO SCH (10:30)
--- NOTE | 2023-02-09 10:54 | Discharge Summary ---
Date of Service February 09, 2023 Admission HPI Per Admitting Provider Taran is a 67-year-old male with a past medical history of hypertension, CAD with history of RCA stenting /2019, mild LVH, hyperlipidemia who presents with exertional chest pain similar to his prior pain leading to stents. He reports that he was doing yard work and he had sudden onset chest pain with radiation to the left upper extremity and neck with lightheadedness, shortness of breath. He has a history of PCI with 4 prior stents, and his pain this morning felt similar to his last heart attack. He did not have any sweating/diaphoresis with this episode. No syncope. [place] lightheaded, but did not feel like he was going to pass out. Pain took 3 nitro with improvement in pain to 2/10 then 0/10. At time of hospitalist assessment his pain has completely resolved. Reports total his pain only lasted 2-5 minutes. NO chest pain [facility] 2000. Reports he has been chest pain free since his last stent up until today. Takes ranexa BID. Last stent was with Dr. Malone in [place]. Follows with Dr. Arteaga currently. +Nausea without vomiting during episode. Slight headache after episode improved at time of admission. - Pt reports he has had mutiple stress tests previously which have been normal, last was a nuclear stress test. Stress tests were normal even prior to both episodes of stents. He has a history of sleep apnea and acid reflux, generally does not lay flat due to these. Is compliant with CPAP for sleep apnea. No leg swelling/edema. No weight gain No longer on beta jerry. Was previously on metroprolol which was stopped by a physician in [facility], although was unclear why. [facility] was the one who placed first two stents, [place] placed the second two. No chest pain doing extensive yard work yesterday, this morning came on quickly, Medical History: Reviewed Medications: Reviewed Surgical History: Reviewed Family history: Reviewed Allergies: Reviewed Social History: No tobacco, rare glass of wine/beer. No rec drug. Code Status: Full Code Discharge Exam gen - NAD, appears well neck - no JVD mouth - MMM heart - RRR, s1 s2, no murmur lungs - CTA b/l abd - soft NT ND BS+ ext - no edema, pulses 2+ b/l vascular - right radial artery - no hematoma; band in place; no bleeding Discharge Data Allergies Allergy/AdvReac Type Severity Reaction Status Date / Time No Known Allergies Allergy Verified 01/24/23 14:29 Consultations 02/07/23 12:48 ED Decision to Admit Stat 02/07/23 15:03 Consult Cardiology Routine Procedures Performed Operation Date: 02/08/23 14:45 Actual Procedures p Cineradiography w/Routine Exam - Rj Shirley MD s Cath, Left with Cors and Vent - Rj Shirley MD s Drug Eluting Stent SGl Vessel - Reuben Cunningham MD Ordered Studies 02/08/23 14:36 CL Cath Imgs for PACS use only Stat Hospital Course (1) Unstable angina: Troponins negative at presentation. However, following his + stress test he underwent L heart cath by Dr Ash Shirley showing a distal 95% RCA lesion. This lesion was felt to be an acute occlusion. Dr Lefty Cunningham subsequently placed a stent across this lesion. 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 Continue - * asa 81mg daily * plavix 75mg daily * zetia 10mg daily * ranexa 500mg BID * crestor 40mg daily I am assuming he is not on beta jerry due to low-normal HRs (60s). (2) CAD (coronary artery disease): previous RCA stents - some done in [place], some done in [place]. diagnostic cath findings today - Coronary angiography: 1. No left main. Separate ostium for LAD and circumflex. 2. Left anterior descending: Large caliber vessel that extends to the apex. Ostial LAD 50 to 70%. There was ventricularization of the arterial waveform while engaged with a 6 [place] diagnostic catheter. Mild chest discomfort described by patient. Small D1. Small to medium caliber D2 with mild CAD. BRIDGER III flow throughout. 3. Circumflex: Mid circumflex 30 to 40%. Large OM 1. Small OM 2. 4. Right coronary artery: RCA is large and dominant. Mid to distal RCA stent patent with mild luminal irregularities distally within the stents. Early mid RCA 50 to 60%. Distal RCA (beyond distal stent margin) hazy 95% stenosis. BRIDGER-3 flow beyond. PDA and PL without significant CAD. PL stent is patent. (3) Hypertension: pre-cath BPs were high post-cath -- BPs still high trend if persistently high -- low-dose amlodipine or could re-trial low-dose BB (4) Hypercholesterolemia: LDL was 57 a few weeks ago cont crestor cont zetia Plan watch overnight possible d/c home tomorrow change observation status to full admission status Discharge Plan Discharge Items Patient Disposition: Home - Self-Care Reason For Visit: Chest pain Discharge Diagnosis: Chest pain due to blocked right coronary artery ("RCA") - stent placement by Dr Lefty Cunningham Activity: Per Instructions section Sexual Activity: Wait until after follow-up appointment Exercise/Sports: Wait until after follow-up appointment Driving/Machine Use: Resume 3 days after discharge Non-emergency contact: Primary Care Provider and Cafeteria Counter Attendant Call non-emergency contact if: you have any medication questions, your symptoms worsen and you have a fever Follow-up/Referrals: Raulito Arteaga MD [Physician] - (1-2 weeks ) Laverne Elmore PA-C [Primary Care Provider] - (5-7 days for blood pressure check & hospital follow-up ) Diet: Heart Healthy Addtl Attending Provider Instructions: Mr Cronin, You were hospitalized for chest pains. You were seen by [facility] and underwent a stress test. The stress test was positive, and cardiology advised a cardiac catheterization. This revealed a 95% blockage in the last portion of the right coronary artery ("RCA"). The blockage looked acute (recent). Dr Rj Shirley performed the first portion of the catheterization, and Dr Lefty Cunningham placed the stent across the blockage. Fortunately, despite the chest pains and the blockage, you did not suffer a heart attack. Further, your echocardiogram shows normal heart function. Recommendations - 1. start metoprolol succinate 25mg once daily -- first dose on 02/10/23. 2. continue all of your other heart medications as previous. 3. I have given you a refill of nitroglycerin tablets to be used in an emergency if you have chest pains or any other symptoms that are similar to your prior heart pains. Keep this bottle with you at all times if possible. The shelf-life is about 1 year. 4. See activity instructions below following your heart catheterization. 5. No heavy exertional activity until you see Dr Arteaga in clinic. Light activities - walks, etc - are OK. Follow-up - see separate section Return to [facility] if - * you have any concerns about your heart catheterization site on the right wrist * you have to use nitroglycerin tablets for chest pain * you have shortness of breath * you have dizziness or lightheadedness * you have symptoms of your heart disease - chest pains, arm pains, jaw pain/neck pain, etc * any other concerns It was our pleasure to care for you at [facility]! -Dr Delgadillo ACTIVITY RECOMMENDATIONS following your heart catheterization - Excess manipulation of the RIGHT wrist should be avoided for the next 24-48 hours. * No lifting over 2 pounds (approximately a 1/2 gallon of milk) with the right arm for 24 hours. * No strenuous activities. * Keep the site of the procedure covered with a bandage for 24 hours. *You may shower the day after the procedure. Do not take a tub bath or submerge the puncture site in water for the next 3 days. *Do not operate any motorized equipment for 3 days. SPECIAL CARE INSTRUCTIONS: The site may be slightly bruised and sore following your procedure. Should any of the following occur, contact the Dr. who performed your procedure. 1. Redness/inflammation, swelling, chills, or fever, or colored drainage at procedure site within 3-7 days after your procedure. 2. Coldness, discoloration, ongoing numbness, severe pain, or swelling. Expect mild tingling of hand and tenderness at the puncture site for up to three days. If this persists beyond three days, or other symptoms develop, notify the Dr. who performed your procedure. BLEEDING: If the procedure site on your wrist begins to bleed, do not panic 1. Place 1 or 2 fingers firmly just slightly above the insertion site to stop the bleeding. You may be able to feel your pulse as you hold pressure. 2. Lift your finger after 5 minutes to see if the bleeding has stopped. 3. Once the bleeding has stopped, gently wipe the wrist area clean with a bandage. * If the bleeding from your wrist does not stop after 10 minutes, or if there is a large amount of bleeding or spurting, call 911 (do not drive yourself to the hospital). SKIN IRRITATION: * You may experience some redness and/or swelling in the area where radiation was administered. If any skin irritation occurs, please contact your family physician. FOLLOW UP VISIT: Keep any scheduled doctor appointments. Pending Studies at Discharge: No Stand-Alone Forms: [facility], Smoking Cessation Medications and DC Order Prescriptions: New metoprolol succinate 25 mg Tablet Extended Release 24 Hr 25 mg PO QAM Qty: 30 5RF Rx Instructions: for your heart and blood pressure. nitroglycerin 0.4 mg tablet, sublingual 0.4 mg sublingual Q5M PRN (Reason: chest pain) Qty: 1 0RF Rx Instructions: max 3 tablets in 15 minutes. Continued pantoprazole [Protonix] 40 mg tablet,delayed release (DR/EC) 40 mg PO DAILY ranolazine [Ranexa] 500 mg tablet extended release 12 hr 500 mg PO BID ezetimibe [Zetia] 10 mg tablet 10 mg PO DAILY clopidogrel [Plavix] 75 mg tablet 75 mg PO DAILY aspirin [Adult Aspirin Regimen] 81 mg tablet,delayed release (DR/EC) 81 mg PO DAILY omega [id number] oil [Fish Oil] 1,000 mg (120 mg-180 mg) capsule 1 cap PO BID rosuvastatin 40 mg tablet 40 mg PO DAILY Discharge Orders: Discharge Order (Routine); Ordered 02/09/23 Ordered By: Kel Delgadillo Admission Data Admit Date/Time: 02/08/23 20:53 Attending Provider: Kel Delgadillo Admit Provider: Jose G Quintero Primary Care Provider: Laverne Elmore Other Providers: Jose G Quintero ; Rj Shirley Coding Diagnoses Unstable angina I20.0 CAD (coronary artery disease) I25.10 Hypertension I10 Hypercholesterolemia E78.00
--- NOTE | 2023-02-09 21:52 | Electrocardiogram Report ---
Test Reason : Blood Pressure : / mmHG Vent. Rate : 063 BPM Atrial Rate : 063 BPM P-R Int : 158 ms QRS Dur : 082 ms QT Int : 402 ms P-R-T Axes : 037 -25 017 degrees QTc Int : 411 ms Normal sinus rhythm Normal ECG No previous ECGs available Confirmed by Rj Shirley ([id number]) on 02/09/2023 9:52:14 PM Referred By: REFERRED SELF Confirmed By:Rj Shirley
--- NOTE | 2023-02-10 06:34 | Electrocardiogram Report ---
Test Reason : Blood Pressure : / mmHG Vent. Rate : 066 BPM Atrial Rate : 066 BPM P-R Int : 162 ms QRS Dur : 084 ms QT Int : 406 ms P-R-T Axes : 044 -23 039 degrees QTc Int : 425 ms Normal sinus rhythm Normal ECG When compared with ECG of 07-FEB-2023 09:58, No significant change was found Confirmed by Rj Shirley [id number] on 02/10/2023 6:34:36 AM Referred By: REFERRED SELF Confirmed By:Rj Shirley
== END 2023-02-09 11:52 | disposition home or self-care (01) | DRG 247 ==
LOC: ED 09:50 → 2N 09:50 → SUATTDRO 13:44 → 2N 14:30 → 2S 02-08 17:12